=== PATIENT | male | born 1975 | race Caucasian/White ===

== ENCOUNTER 2024-03-05 16:28 | Emergency (ER) | payer OTHER, SELFPAY ==
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
[2024-03-05 16:36] VITALS: BP 136/75; PULSE 92; O2SAT 98
[2024-03-05 16:40] VITALS: BP 149/74; PULSE 90; RESP 20; O2SAT 99; BMI 54.2
[2024-03-05 16:52] VITALS: BP 149/74; PULSE 90; RESP 20; O2SAT 99
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
[2024-03-05 18:30] VITALS: BP 122/70; PULSE 85; RESP 16; TEMP 36.8; O2SAT 97
[2024-03-05] MEDS: Ibuprofen 800 MG TABLET PO (19:43)
[2024-03-05 20:56] VITALS: BP 140/84; PULSE 79; RESP 16; TEMP 36.7; O2SAT 98
[2024-03-05 21:20] VITALS: BP 140/84; PULSE 79; RESP 16; TEMP 36.7; O2SAT 98
== END 2024-03-05 21:20 | disposition home or self-care (01) ==
PROVIDERS: Emergency Provider Emergency Medicine Emergency Medical Services; PCP Internal Medicine
DX: S09.90XA Unspecified injury of head, initial encounter (principal); R07.89 Other chest pain; M54.2 Cervicalgia; R51.9 Headache, unspecified; V53.5XXA Driver of pick-up truck or van injured in collision with car, pick-up truck or van in traffic accident, initial encounter; Y93.89 Activity, other specified; Y92.488 Other paved roadways as the place of occurrence of the external cause; Y99.8 Other external cause status
CPT/HCPCS: 70450; 71045; 72125; 99284